=== PATIENT | male | born 1965 | race Caucasian/White ===

== ENCOUNTER 2016-11-27 03:02 | Emergency (ER) | payer OTHER ==
[2016-11-27 03:10] VITALS: PULSE 51
[2016-11-27] MEDS ORDERED: NS 1,000 ML IV ONE (03:20)
[2016-11-27 03:34] LABS: % IMMATURE GRANULYOCYTES 0.2 % (0.0-1.1); ABSOLUTE IMMATURE GRANULOCYTES 0.01 10^3/uL (0.00-0.10); ADD DIFF? NO; ADD MORPH? NO; ADD SCAN? NO; ATYPICAL LYMPHOCYTE FLAG 10 (0-99); FRAGMENT RBC FLAG 0 (0-99); HEMATOCRIT 42.7 % (40.0-51.0); HEMOGLOBIN 14.5 g/dL (13.7-17.5); LEFT SHIFT FLG 0 (0-99); LIPEMIA HEMOLYSIS FLAG 90 (0-99); MEAN CELL HEMOGLOBIN 30.7 pg (27.9-34.1); MEAN CELL VOLUME 90.5 fL (81.5-99.8); MEAN PLATELET VOLUME 10.5 fL (8.7-11.7); PLATELET CLUMPS FLAG 0 (0-99); PLATELET COUNT 186 10^3/uL (150-400); RED BLOOD CELL COUNT 4.72 10^6/uL (4.40-6.38); RED CELL DISTRIBUTION WIDTH 13.4 % (11.5-15.2)
--- NOTE | 2016-11-27 03:36 | EDPHY ---
H & P Stated Complaint: rlq abd pain since 1 pm Time Seen by Provider: 11/27/16 03:19 HPI/ROS: HPI The patient presents with right lower quadrant abdominal pain which began at about 1:00 p.m. and started slowly. It has been constant ever since. It feels like a muscular type of pain is worse with changes in position. He took Aleve with improvement in his symptoms. He says this feels like gas pains but is worse. He awoke at night with continued pain and decided to come to the emergency room. He does not have any nausea, vomiting, anorexia, diarrhea, constipation, fever. REVIEW OF SYSTEMS Constitutional: No fever, no chills. Eyes: No discharge. ENT: No sore throat. Cardiovascular: No chest pain, no palpitations. Respiratory: No cough, no shortness of breath. Gastrointestinal: See HPI Genitourinary: No hematuria. Musculoskeletal: No back pain. Skin: No rashes. Neurological: No headache. PMHx: Inguinal hernia repair Soc Hx: Housed PHYSICAL General Appearance: Alert, no distress Eyes: Pupils equal and round no pallor or injection ENT, Mouth: Mucous membranes moist Respiratory: There are no retractions, lungs are clear to auscultation Cardiovascular: Regular rate and rhythm Gastrointestinal: Abdomen is soft and with tenderness lateral to the umbilicus on the right, no masses, bowel sounds normal Neurological: A&O, moves all extremities Skin: Warm and dry, no rashes Musculoskeletal: Neck is supple non tender Extremities: symmetrical, full range of motion Psychiatric: Patient is oriented X 3, there is no agitation Source: Patient Exam Limitations: No limitations - Personal History Current Tetanus/Diphtheria Vaccine: Yes Current Tetanus Diphtheria and Acellular Pertussis (TDAP): Yes Tetanus Vaccine Date: APR 2012 - Medical/Surgical History Hx Asthma: No Hx Chronic Respiratory Disease: No Hx Diabetes: No Hx Cardiac Disease: No Hx Renal Disease: No Hx Cirrhosis: No Hx Alcoholism: No Hx HIV/AIDS: No Hx Splenectomy or Spleen Trauma: No Other PMH: Denies - Social History Smoking Status: Never smoked Constitutional: Initial Vital Signs Temperature (C) 36.4 C 11/27/16 03:06 Heart Rate 51 L 11/27/16 03:06 Respiratory Rate 18 11/27/16 03:06 Blood Pressure 114/71 11/27/16 03:06 O2 Sat (%) 97 11/27/16 03:06 O2 Delivery Mode Room Air Allergies/Adverse Reactions: No Known Allergies Allergy (Verified 02/22/14 12:08) Home Medications: Medication Instructions Recorded Citalopram 02/22/14 Gabapentin 60 05/12/14 Medical Decision Making - Diagnostics Imaging Results: CT abdomen pelvis with IV contrast does not visualize the appendix, constipation is present. Imaging: Discussed imaging studies w/ call center supervisor Radiologist Differential Diagnosis: This is a 51-year-old man who presents from home with more than 12 hours of right lower quadrant abdominal pain without any other symptoms. He is quite tender in the right lower quadrant without rebound or guarding. Differential diagnosis includes acute appendicitis, muscle strain, mesenteric adenitis. In the emergency room, patient did not require any pain medication. Labs were checked and were normal. CT scan of the abdomen pelvis was performed which showed no visualized appendix making suspicion for appendicitis is low. Patient does have constipation on the right. I have discussed this with him. I will send him home with instructions for MiraLax. - Data Points Laboratory Results: Laboratory Results 11/27/16 03:30 11/27/16 03:30 Medications Given: Discontinued Medications Sodium Chloride (Ns) 1,000 mls @ 0 mls/hr IV ONCE ONE; Wide Open PRN Reason: Protocol Stop: 11/27/16 03:21 Last Admin: 11/27/16 04:45 Dose: Not Given Departure - Departure Disposition: Home, Routine, Self-Care Clinical Impression: Abdominal pain, Constipation Condition: Good Instructions: Constipation (ED) Additional Instructions: Please make sure to drink plenty of fluids. You should take MiraLax, 17 g once a day for constipation. If you do not have success with that, you can try drinking a bottle of magnesium citrate. Both of these medications are available over the counter. Referrals: Silvano Montelongo, [Primary Care Provider] - As per Instructions
[2016-11-27] MEDS ORDERED: IOPAMIDOL (ISOVUE-300) 100 ML BTL ONE (03:43)
[2016-11-27 03:46] LABS: ALANINE AMINOTRANSFERASE 41 IU/L (21-72); ALKALINE PHOSPHATASE 51 IU/L (38-126); ANION GAP 10 mEq/L (8-16); ASPARTATE AMINOTRANSFERASE 51 IU/L (17-59); BILIRUBIN,TOTAL 0.9 mg/dL (0.1-1.4); BILIRUBIN-CONJUGATED 0.4 mg/dL (0.0-0.5); BILIRUBIN-UNCONJUGATED 0.5 mg/dL (0.0-1.1); CALCIUM 9.4 mg/dL (8.5-10.4); CARBON DIOXIDE 27 mEq/l (22-31); CHLORIDE 107 mEq/L (97-110); CREATININE 0.9 mg/dL (0.7-1.3); GLOMERULAR FILTRATION RATE > 60; GLUCOSE 99 mg/dL (70-100); POTASSIUM 4.2 mEq/L (3.5-5.2); SODIUM 144 mEq/L (134-144); TOTAL PROTEIN 6.6 g/dL (6.3-8.2)
[2016-11-27 04:56] VITALS: BP 123/71; RESP 16; TEMP 97.7; O2SAT 93
== END 2016-11-27 04:56 | disposition home or self-care (01) ==
DX: K59.00 Constipation, unspecified (principal)
CPT/HCPCS: Q9967

== ENCOUNTER 2017-02-04 21:07 | Emergency (ER) | payer OTHER ==
[2017-02-04 21:13] VITALS: TEMP 97.9
--- NOTE | 2017-02-04 21:30 | EDPHY ---
H & P Time Seen by Provider: 02/04/17 21:22 HPI/ROS: HPI Left calf pain. 51-year-old male by private vehicle. He complains of left calf pain today described as a cramping or straining sensation in the belly of his left mid calf starting earlier today and persisting throughout the day. No history of trauma. He does have a history of a left hamstring repair that was done at [facility] a little over 2 weeks ago. He is concerned about a DVT. No other complaint. ROS: Constitutional: No fever, no chills. No weakness. Respiratory: No cough. No shortness of breath. Cardiac: No chest pain, no palpitations. Gastrointestinal: No abdominal pain, no vomiting, no diarrhea. Musculoskeletal: No back pain. No neck pain. As above. Denies other extremity pain. Skin: No rashes. Neurological: No headache. No focal weakness or altered sensation. Past medical history: Anxiety, insomnia. As above. Social history: Here by himself. No alcohol. Nonsmoker. Physical Exam: General Appearance: Alert, no distress. This patient is responding to questions appropriately and in full sentences. This patient appears well- hydrated and well-nourished. Eyes: Pupils equal and round no pallor or injection. No lid edema, erythema or injection. Left lower extremity exam: The left lower extremity is in a compression stocking. This was taken down. No palpable cords appreciated in the popliteal fossa. No masses appreciated on palpation of the calf musculature. He does have vague tenderness mid calf on palpation. No erythema, swelling or edema. Negative Andrew sign. No significant asymmetric swelling in comparison to his right lower extremity. The left lower extremity is neurovascularly intact. Neurological: Motor sensory function is grossly intact. Cranial nerves are normal. He is on crutches. Skin: Warm and dry, no rashes. Extremities are symmetrical. Psychiatric: No agitation. No depression. Database: EKG: Imaging: Left lower extremity ultrasound: DVT in the popliteal vein and gastrocnemius vein, not a large clot burden. Results discussed with staff radiologist Dr. Shayne Toney. Procedures: Emergency department course: Left lower extremity ultrasound ordered. 10:20 p.m., patient re-evaluated. Results of his ultrasound and diagnosis of left leg DVT discussed with him. Treatment options reviewed. I consulted with the on-call hospitalist as well as our pharmacist. Plan will be to start this patient on Xarelto in the emergency department. He was given 15 mg of Xarelto. He will be prescribed this medication at 15 mg twice daily for 21 days initially. He is to follow up with his primary care physician, Dr. Montelongo at [facility] for re-evaluation and ongoing management of his DVT. I will write him an initial prescription for Xarelto at 15 mg twice daily for 10 days. He will follow up with his primary care physician at [facility] this week for a continued prescription of this medication. The patient endorses this plan. I also reviewed his blood work from November of this year. CBC and basic metabolic panel BUN and creatinine normal. Patient understands his follow-up. I explained that he required long-term anticoagulation past 21 days he would be switched to a once daily dosing at 20 mg per day. Return to emergency department precautions reviewed with him. All of his questions were answered. He was discharged in good condition. Differential Diagnosis: The differential diagnosis on this patient includes but is not limited to DVT, gastrocnemius strain. This represents a partial list of diagnoses considered. These considerations are based on history, physical exam, past history, reassessment and diagnostic testing. Smoking Status: Never smoked Constitutional: Initial Vital Signs Temperature (C) 36.6 C 02/04/17 21:10 Heart Rate 75 02/04/17 21:10 Respiratory Rate 18 02/04/17 21:10 Blood Pressure 138/80 H 02/04/17 21:10 O2 Sat (%) 92 02/04/17 21:10 O2 Delivery Mode Room Air Allergies/Adverse Reactions: No Known Allergies Allergy (Verified 02/22/14 12:08) Home Medications: Medication Instructions Recorded Citalopram 02/22/14 Gabapentin 60 05/12/14 Rivaroxaban [Xarelto 15mg (*)] 15 mg PO BID #20 tab 02/04/17 Medical Decision Making - Diagnostics Imaging Results: Imaging Impressions Extremity Venous Study 02/04/17 21:11 Impression: DVT in the popliteal and gastrocnemius veins. Findings discussed with Osmar Tomas MD 02/04/2017 at 21:58. Departure - Departure Disposition: Home, Routine, Self-Care Clinical Impression: Pain of left calf, Left leg DVT Condition: Good Instructions: Rivaroxaban (By mouth), Deep Venous Thrombosis (ED) Additional Instructions: Read and follow provided instructions. Follow-up with your primary care physician, Dr. Montelongo at [facility], in the next 2-3 days for re-evaluation and ongoing management of your left leg DVT. Take medication as prescribed. Xarelto/rivaroxaban dosin mg, twice daily for the 1st 21 days followed by 20 mg daily for remainder of treatment. I will prescribe you a 10 day supply of this medication. Your primary care physician, Dr. Montelongo, is then to fill your prescription for the remainder of the twice daily dosing up to 21 days followed by daily dosing at 20 mg daily as above. Return to the emergency department for worsening pain, swelling, fever, discoloration or other serious concerns. Referrals: NONE *PRIMARY CARE P,. [Primary Care Provider] - As per Instructions Prescriptions: Rivaroxaban [Xarelto 15mg (*)] 15 mg PO BID #20 tab
[2017-02-04] MEDS ORDERED: DABIGATRAN ETEXILATE MESYL 150 MG CAP PO ONE (22:15)
[2017-02-04] MEDS ORDERED: RIVAROXABAN 15 MG TAB PO ONE (22:23)
[2017-02-04 22:55] VITALS: BP 111/67; PULSE 64; RESP 16; O2SAT 95
== END 2017-02-04 22:55 | disposition home or self-care (01) ==
DX: I82.402 Acute embolism and thrombosis of unspecified deep veins of left lower extremity (principal)

== ENCOUNTER → 2017-06-08 | Outpatient (CLI) | payer OTHER | LOC: FIMAGING 13:16 | PROVIDERS: ATTEND Family Medicine | DX: Z86.718 Personal history of other venous thrombosis and embolism (principal) ==